=== PATIENT | female | born 1940 | race Caucasian/White ===

== ENCOUNTER 2021-07-28 18:15 | Inpatient (IN) ==
[2021-07-28] MEDS ORDERED: Isovue-370 500 ML BOTTLE IVP ONE (18:32)
[2021-07-28 18:48] LABS: Hematocrit 46.7 % (35.3-44.9); Hemoglobin 15.7 g/dL (11.5-15.4); Mean Corpuscular HGB Conc 33.6 g/dL (31.6-35.5); Mean Corpuscular Hemoglobin 32.2 pg (28.0-33.3); Mean Corpuscular Volume 95.7 fL (83.0-100.0); Mean Platelet Volume 9.7 fL (9.4-12.4); Platelet Count 211 K/mcL (140-400); Red Blood Count 4.88 M/mcL (3.82-4.97); Red Cell Distribution Width 12.8 % (11.5-14.5); White Blood Count 7.5 K/mcL (4.3-11.1)
[2021-07-28 18:55] LABS: INR 1.1
[2021-07-28 18:58] LABS: Activated Partial Thrombo Time 30.4 Seconds (26.0-36.0)
[2021-07-28 19:10] LABS: Albumin 4.8 g/dL (3.5-5.7); Albumin/Globulin Ratio 1.5 (1.1-2.2); Bilirubin,Direct 0.1 mg/dL (0.0-0.2); Bilirubin,Indirect 0.6 mg/dL (0.0-1.0); Bilirubin,Total 0.7 mg/dL (0.3-1.0); Globulin 3.3 g/dL (2.4-3.5); Total Protein 8.1 g/dL (6.4-8.9)
[2021-07-28 19:12] LABS: BUN/Creatinine Ratio 23 (6-26); Blood Urea Nitrogen 20 mg/dL (8-23); Calcium 10.1 mg/dL (8.6-10.3); Carbon Dioxide 30 mEq/L (23-29); Chloride 105 mEq/L (98-107); Glucose 98 mg/dL (70-105); Osmolality,Calculated 301 (280-300); Sodium 144 mEq/L (136-145); eGFR For African Americans > 60 (> 60); eGFR For Non-African Americans > 60 (> 60)
[2021-07-28 19:13] LABS: Troponin I < 0.03 ng/mL (< 0.04)
[2021-07-28] MEDS ORDERED: Aspirin 81 MG TAB.CHEW PO STA (21:08)
[2021-07-28] MEDS ORDERED: Naloxone 0.4 MG/ML INJ IVP PRN (21:45)
[2021-07-28] MEDS ORDERED: Acetaminophen 325 MG TABLET PO PRN (21:45)
[2021-07-28] MEDS ORDERED: Ondansetron 4 MG/2 ML VIAL IVP PRN (21:45)
[2021-07-29] MEDS: Aspirin Enteric Coated 81 MG Tablet PO SCH ×2 (00:37→07:24)
[2021-07-29] MEDS ORDERED: Perflutren Lipid Microsphere 1.3 ML in 0.9 % Sodium Chloride 8.7 ML IVP PRN (01:35)
[2021-07-29 05:48] LABS: Basophils # 0.1 K/mcL (0.0-0.2); Basophils % 0.6 %; Eosinophils # 0.1 K/mcL (0.0-0.6); Eosinophils % 1.6 %; Hematocrit 41.5 % (35.3-44.9); Immature Granulocytes % 0.1 % (0-4); Lymphocytes # 1.2 K/mcL (0.6-4.6); Mean Corpuscular HGB Conc 32.8 g/dL (31.6-35.5); Mean Corpuscular Hemoglobin 31.1 pg (28.0-33.3); Mean Corpuscular Volume 94.7 fL (83.0-100.0); Monocytes # 0.9 K/mcL (0.0-1.3); Monocytes % 11.6 %; Neutrophils # 5.4 K/mcL (1.6-8.9); Platelet Count 221 K/mcL (140-400); Red Blood Count 4.38 M/mcL (3.82-4.97); Red Cell Distribution Width 12.9 % (11.5-14.5); Segmented Neutrophils % 70.1 %; White Blood Count 7.7 K/mcL (4.3-11.1)
[2021-07-29 05:49] LABS: Hemoglobin 13.6 g/dL (11.5-15.4)
[2021-07-29 06:15] LABS: Alanine Aminotransferase 28 Units/L (7-52); Albumin 4.2 g/dL (3.5-5.7); Albumin/Globulin Ratio 1.4 (1.1-2.2); Alkaline Phosphatase 64 Units/L (34-104); Aspartate Amino Transferase 23 Units/L (13-39); BUN/Creatinine Ratio 21 (6-26); Bilirubin,Direct 0.1 mg/dL (0.0-0.2); Bilirubin,Indirect 0.7 mg/dL (0.0-1.0); Bilirubin,Total 0.8 mg/dL (0.3-1.0); Blood Urea Nitrogen 16 mg/dL (8-23); Calcium 9.9 mg/dL (8.6-10.3); Carbon Dioxide 31 mEq/L (23-29); Chloride 105 mEq/L (98-107); Chol/HDL Ratio 2.3 (0-4.9); Cholesterol 177 mg/dL (< 200); Globulin 2.9 g/dL (2.4-3.5); Glucose 108 mg/dL (70-105); HDL Cholesterol 77 mg/dL (40-59); LDL Cholesterol,Calculated 84 mg/dL (< 100); Magnesium 1.8 mg/dL (1.6-2.6); Osmolality,Calculated 298 (280-300); Phosphorous 2.8 mg/dL (2.7-4.5); Sodium 143 mEq/L (136-145); Total Protein 7.1 g/dL (6.4-8.9); Triglycerides 80 mg/dL (< 150); eGFR For African Americans > 60 (> 60); eGFR For Non-African Americans > 60 (> 60)
[2021-07-29 06:16] LABS: Estimated Average Glucose 117 mg/dl; Hemoglobin A1C 5.7 %
[2021-07-29 06:24] LABS: Thyroid Stimulating Hormone 3.537 mcIU/mL (0.340-5.600)
[2021-07-29 06:36] LABS: Folate 18.3 ng/mL (3.0-16.0)
[2021-07-29 09:01] LABS: Bilirubin,Urine Negative (Negative); Blood,Urine Negative (Negative); Clarity,Urine Clear (Clear); Color,Urine Light-Yellow (Yellow); Glucose,Urine (UA) Normal (Normal); Ketones,Urine Negative (Negative); Leukocyte Esterase,Urine Negative (Negative); Nitrite,Urine Negative (Negative); Protein,Urine Trace mg/dL (Neg-Trace); Specific Gravity,Urine > 1.030 (1.010-1.025); Urobilinogen,Urine Normal (Normal)
[2021-07-29 09:13] LABS: Amphetamine Screen,Urine Negative ng/mL (Cutoff=1000); Barbiturate Screen,Urine Negative ng/mL (Cutoff=200); Benzodiazepines Screen,Urine Negative ng/mL (Cutoff=200); Cannabinoid Screen,Urine Negative ng/mL (Cutoff = 50); Cocaine Screen,Urine Negative ng/mL (Cutoff= 300); Opiate Screen,Urine Negative ng/mL (Cutoff=300); Phencyclidine Screen,Urine Negative ng/mL (Cutoff=25)
[2021-07-29] MEDS: atenoloL 50 MG TABLET PO SCH (19:40)
[2021-07-29] MEDS: traZODone 50 MG TABLET PO SCH (19:40)
[2021-07-30] MEDS: *HR* Enoxaparin 30 MG/0.3 ML SYRINGE SQ SCH (05:43)
[2021-07-30] MEDS: Aspirin Enteric Coated 81 MG Tablet PO SCH (07:20)
[2021-07-30] MEDS ORDERED: Haloperidol Lactate 5 MG/ML VIAL IM ONE (17:35)
[2021-07-30] MEDS: atenoloL 50 MG TABLET PO SCH (21:27)
[2021-07-30] MEDS: traZODone 50 MG TABLET PO SCH (21:27)
[2021-07-30] MEDS: Mirtazapine 15 MG TABLET PO SCH (21:28)
[2021-07-31] MEDS: *HR* Enoxaparin 30 MG/0.3 ML SYRINGE SQ SCH (05:42)
[2021-07-31] MEDS: Aspirin Enteric Coated 81 MG Tablet PO SCH (07:56)
[2021-07-31] MEDS: QUEtiapine Fumarate 25 MG TABLET PO SCH ×2 (11:38→21:36)
[2021-07-31] MEDS: atenoloL 50 MG TABLET PO SCH (21:36)
[2021-07-31] MEDS: traZODone 50 MG TABLET PO SCH (21:36)
[2021-07-31] MEDS: Mirtazapine 15 MG TABLET PO SCH (21:37)
[2021-08-01 04:54] LABS: Basophils % 0.8 %; Eosinophils # 0.4 K/mcL (0.0-0.6); Eosinophils % 6.9 %; Hematocrit 35.7 % (35.3-44.9); Hemoglobin 11.9 g/dL (11.5-15.4); Immature Granulocytes % 0.2 % (0-4); Lymphocytes # 1.5 K/mcL (0.6-4.6); Mean Corpuscular HGB Conc 33.3 g/dL (31.6-35.5); Mean Corpuscular Hemoglobin 31.6 pg (28.0-33.3); Mean Corpuscular Volume 94.9 fL (83.0-100.0); Mean Platelet Volume 9.8 fL (9.4-12.4); Monocytes # 0.8 K/mcL (0.0-1.3); Monocytes % 15.1 %; Neutrophils # 2.4 K/mcL (1.6-8.9); Platelet Count 175 K/mcL (140-400); Red Blood Count 3.76 M/mcL (3.82-4.97); Red Cell Distribution Width 12.6 % (11.5-14.5); White Blood Count 5.1 K/mcL (4.3-11.1)
[2021-08-01 05:10] LABS: BUN/Creatinine Ratio 32 (6-26); Blood Urea Nitrogen 25 mg/dL (8-23); Carbon Dioxide 32 mEq/L (23-29); Chloride 106 mEq/L (98-107); Glucose 91 mg/dL (70-105); Osmolality,Calculated 298 (280-300); Phosphorous 3.6 mg/dL (2.7-4.5); Potassium 3.8 mEq/L (3.5-5.1); Sodium 142 mEq/L (136-145); eGFR For African Americans > 60 (> 60); eGFR For Non-African Americans > 60 (> 60)
[2021-08-01] MEDS: *HR* Enoxaparin 30 MG/0.3 ML SYRINGE SQ SCH (06:02)
[2021-08-01] MEDS: QUEtiapine Fumarate 25 MG TABLET PO SCH (08:59)
[2021-08-01] MEDS: Aspirin Enteric Coated 81 MG Tablet PO SCH (09:00)
[2021-08-01 10:48] LABS: Influenza A PCR Negative (Negative); Influenza B PCR Negative (Negative); Resp. Syncytial Virus PCR Negative (Negative)
[2021-08-01 10:52] LABS: SARS-CoV-2 by PCR (In House) Negative (Negative)
[2021-08-01 11:15] VITALS: BP 97/55; PULSE 74; TEMP 97.9; O2SAT 93
[2021-08-02] MEDS ORDERED: Aspirin Enteric Coated 81 MG Tablet PO SCH (09:00)
== END 2021-08-01 14:02 | DRG 65 ==
LOC: EMEROOARM 18:15 → 3BNU 18:15 → SUATTDRO 21:44 → 3BNU 22:25 → SUATTDRO 07-29 11:24
PROVIDERS: ADMIT Internal Medicine; ATTEND Internal Medicine